=== PATIENT | female | born 1980 | race Caucasian/White ===

== ENCOUNTER 2024-04-15 05:34 | Day surgery (SDC) | payer OTHER ==
[2024-04-15] MEDS: Sodium Chloride 0.9% 500 ML IV SCH (05:54)
[2024-04-15] MEDS ORDERED: Midazolam 1 MG/ML 2 ML SDV ONE (06:09)
[2024-04-15] MEDS ORDERED: Midazolam 1 MG/ML 2 ML SDV IV ONE (06:10)
[2024-04-15] MEDS ORDERED: fentaNYL 100 MCG/2 ML SDV ONE (06:10)
[2024-04-15] MEDS ORDERED: fentaNYL 100 MCG/2 ML SDV IV ONE (06:10)
[2024-04-15] MEDS: fentaNYL 100 MCG/2 ML SDV IV ONE ×4 (06:24→06:37)
[2024-04-15] MEDS: Midazolam 1 MG/ML 2 ML SDV IV ONE ×6 (06:25→06:32)
== END 2024-04-15 08:23 | disposition home or self-care (01) ==
LOC: DL.ENDO 05:34
PROVIDERS: ATTEND Internal Medicine Gastroenterology
DX: Z12.11 Encounter for screening for malignant neoplasm of colon (principal); I10 Essential (primary) hypertension; F41.1 Generalized anxiety disorder; E66.09 Other obesity due to excess calories; Z68.29 Body mass index [BMI] 29.0-29.9, adult; Z88.2 Allergy status to sulfonamides
CPT/HCPCS: 45378; J2250; J3010; J7040